=== PATIENT | female | born 1980 | race Hispanic/Latino ===

== ENCOUNTER 2018-12-04 07:54 | Outpatient (CLI) | payer BC ==
--- NOTE | 2018-12-04 09:34 | MRI ---
MRI Lumbar Spine WO Con History: R 20.8 numbness of left foot. Comparison: None. Findings: The aortic contour is normal. No hydronephrosis. No retroperitoneal periaortic adenopathy. The conus medullaris terminates near the superior endplate of L2. Paraspinal musculature is symmetric. No marrow infiltrative process. Levels are as follows: L1/L2: Normal disc. No neural foraminal or spinal canal narrowing. L2/L3: Normal disc. No neural foraminal or spinal canal narrowing. L3/L4: Normal disc. No neural foraminal or spinal canal narrowing. Low-grade facet arthropathy. L4/L5: Low-grade broad-based posterior disc bulge. Small facet joint effusions with mild hypertrophic arthropathy. Mild bilateral neural foraminal narrowing. L5/S1: Asymmetric left-sided posterior disc bulge involving the lateral recess, subforaminal zone, an d extra foraminal zone. Moderate left neural foraminal narrowing. Moderate hypertrophic facet arthropathy. Impression: 1. 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 Pelvic MRI with and without contrast recommended. 2. Low-grade spondylosis lower lumbar spine.
== END 2018-12-04 07:55 | disposition home or self-care (01) ==
LOC: MRI 07:54
PROVIDERS: ATTEND Family Medicine
DX: M54.5 Low back pain (principal); R20.0 Anesthesia of skin; M47.816 Spondylosis without myelopathy or radiculopathy, lumbar region; R93.7 Abnormal findings on diagnostic imaging of other parts of musculoskeletal system
CPT/HCPCS: 72148